=== PATIENT | female | born 1985 | race Two or more races ===

== ENCOUNTER 2023-03-30 00:06 | Emergency (ER) | payer SELFPAY ==
[~2023-03-30] VITALS: Ht 162.6 cm; Wt 77.3 kg
[2023-03-30 00:39] VITALS: TEMP 98.3
[2023-03-30 03:30] VITALS: BP 127/70; PULSE 74; RESP 17
[2023-03-30] MEDS ORDERED: IBUPROFEN 600 MG TABLET PO ONE (03:45)
[2023-03-30] MEDS ORDERED: LIDOCAINE 5% TRANSDERMAL PATCH TD ONE (03:45)
== END 2023-03-30 04:25 | disposition home or self-care (01) ==
LOC: EMS 00:12
DX: S83.92XA Sprain of unspecified site of left knee, initial encounter (principal); S63.617A Unspecified sprain of left little finger, initial encounter; V49.9XXA Car occupant (driver) (passenger) injured in unspecified traffic accident, initial encounter; Y93.89 Activity, other specified; Y92.89 Other specified places as the place of occurrence of the external cause; Y99.8 Other external cause status
CPT/HCPCS: 99284